=== PATIENT | female | born 2000 | race Caucasian/White ===

== ENCOUNTER 2024-08-24 12:01 | Outpatient (CLI) | payer BC, SELFPAY ==
--- NOTE | ~2024-08-24 | XR_ITS ---
EXAMINATION: [id number] DATE: 08/24/2024 12:14 INDICATION: Left foot pain. TECHNIQUE: 3 views of left foot standing were obtained. COMPARISON: None. FINDINGS: Bone alignment is normal. No fracture. There is mild osteoarthritis of first metatarsophala ngeal joint. IMPRESSION: 1. Mild osteoarthritis of first metatarsophalangeal joint. Reviewed, dictated and finalized at location A.
== END 2024-08-24 12:02 | disposition home or self-care (01) ==
LOC: GOSHIMG 12:01
PROVIDERS: PCP Nurse Practitioner; Visit Provider Nurse Practitioner
DX: M19.072 Primary osteoarthritis, left ankle and foot (principal); M79.672 Pain in left foot
CPT/HCPCS: 73630